=== PATIENT | male | born 1980 | race African-American/Black ===

== ENCOUNTER 2018-09-17 03:40 | Emergency (ER) | payer SELFPAY ==
[~2018-09-17] VITALS: Ht 193 cm; Wt 104.8 kg
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
[2018-09-17 06:23] VITALS: BP 122/88
== END 2018-09-17 06:24 | disposition home or self-care (01) ==
LOC: ER 03:43
DX: S16.1XXA Strain of muscle, fascia and tendon at neck level, initial encounter (principal); V49.69XA Unspecified car occupant injured in collision with other motor vehicles in traffic accident, initial encounter; Y93.89 Activity, other specified; Y92.413 State road as the place of occurrence of the external cause; Y99.8 Other external cause status
CPT/HCPCS: 72125-TC